=== PATIENT | female | born 1950 | race Caucasian/White ===

== ENCOUNTER 2016-09-30 15:53 | Emergency (ER) | payer MEDICARE, OTHER ==
[~2016-09-30] VITALS: Ht 167.6 cm; Wt 72.0 kg
[~2016-09-30 15:53] MED LIST: B2; LORA5SOL3 PO; LOVA20TA PO
[2016-09-30 16:04] VITALS: BP 121/65; PULSE 64; RESP 16; TEMP 97.5; O2SAT 96
--- NOTE | 2016-09-30 17:27 | RADHPO ---
EXAM DATE/TIME: 09/30/2016 16:42 [facility] COMPARISON: No previous studies available for comparison. INDICATIONS : Left wrist pain for 3 days after fall. MEDICAL HISTORY : None. SURGICAL HISTORY : None. ENCOUNTER: Initial ACUITY: 3 days PAIN SCORE: Non-responsive. LOCATION: Left entire wrist FINDINGS: Degenerative changes are seen in the carpus with a soft-tissue swelling. Alignment is anatomic. A f racture is not appreciated. CONCLUSION: Degenerative changes without fracture. Guillermo Chou MD FACR on September 30, 2016 at 17:17 Board Certified Radiologist. This report was verified electronically.
--- NOTE | 2016-09-30 17:27 | RADHPO ---
EXAM DATE/TIME: 09/30/2016 16:42 [facility] COMPARISON: No previous studies available for comparison. INDICATIONS : Left hand pain, swelling for 3 days after fall MEDICAL HISTORY : None. SURGICAL HISTORY : None. ENCOUNTER: Initial ACUITY: 3 days PAIN SCORE: Non-responsive. LOCATION: Left entire hand FINDINGS: Bones are diffusely osteoporotic. Fingers are held in flexion. There is generalized soft-tissue swe lling. There are degenerative changes of the carpus. There is no evidence for a fracture of the carpus, metacarpals or proximal phalanges. The distal pha langes are poorly evaluated. CONCLUSION: Generalized soft-tissue swelling without evidence for a fracture. Guillermo Chou MD FACR on September 30, 2016 at 17:16 Board Certified Radiologist. This report was verified electronically.
--- NOTE | 2016-09-30 17:28 | RADHPO ---
EXAM DATE/TIME: 09/30/2016 16:52 [facility] COMPARISON: No previous studies available for comparison. INDICATIONS : Left shoulder pain, swelling after fall 3 days ago MEDICAL HISTORY : None. SURGICAL HISTORY : None. ENCOUNTER: Initial ACUITY: 1 day PAIN SCORE: Non-responsive. LOCATION: Left entire shoulder FINDINGS: There is a fracture of the distal clavicle. Glenoid and humerus are intact. Lung apex is clear. CONCLUSION: Fracture distal clavicle. Guillermo Chou MD FACR on September 30, 2016 at 17:17 Board Certified Radiologist. This report was verified electronically.
[2016-09-30] MEDS ORDERED: SLEEPING PILL (18:51)
--- NOTE | 2016-09-30 18:59 | PD ---
HPI Chief Complaint: Fall Time Seen by Provider: 18:45 Travel History International Travel<30 days: No Contact w/Intl Traveler<30days: No Traveled to known affect area: No History of Present Illness HPI Patient is a 66 -year-old female presented to emergency department for evaluation of left shoulder pain. Patient had a mechanical fall on Wednesday where she fell out of the chair, hitting the back of her head on the floor. Since that time she is had pain with movement of the left shoulder per ' s report. Patient is in a memory unit for dementia. Patient is currently denying any pain. Per 's report patient is acting normally, he states that she does not normally follow commands well. PFSH Past Medical History Dementia: Yes Headaches: Yes Social History Alcohol Use: No Tobacco Use: No Substance Use: No Allergies-Medications (Allergen,Severity, Reaction): Coded Allergies: Sulfa (Verified Allergy, Severe, HIVES, 09/30/16) Reported Meds & Prescriptions Reported Meds & Active Scripts Active Reported [Sleeping Pill] Review of Systems Except as stated in HPI: all other systems reviewed are Neg Musculoskeletal: Positive: Limited ROM Skin: Positive Lumps Physical Exam Exam Limitations: Poor Historian Narrative GENERAL: Well-developed, well-nourished, alert elderly female. Resting comfortably in no acute distress. SKIN: Focused skin assessment warm/dry. HEAD: Atraumatic. Normocephalic. EYES: Pupils equal and round. No scleral icterus. No injection or drainage. ENT: No nasal bleeding or discharge. Mucous membranes pink and moist. NECK: Trachea midline. No JVD. CARDIOVASCULAR: Regular rate and rhythm. No murmur appreciated. RESPIRATORY: No accessory muscle use. Clear to auscultation. Breath sounds equal bilaterally. GASTROINTESTINAL: Abdomen soft, non-tender, nondistended. Hepatic and splenic margins not palpable. MUSCULOSKELETAL: No obvious deformities. No clubbing. No cyanosis. No edema. Tender to palpation over left clavicle. No ecchymosis noted over area. NEUROLOGICAL: Awake and alert. Left arm and hand contracture. Normal speech. PSYCHIATRIC: Appropriate mood and affect; insight and judgment impaired. Data Data Last Documented VS Vital Signs Date Time Temp Pulse Resp B/P Pulse Ox O2 Delivery O2 Flow Rate FiO2 09/30/16 16:04 97.5 64 16 121/65 96 Orders Hand, Complete ([id number]) (09/30/16 ) Shoulder, Complete (>2vws) (09/30/16 ) Wrist, Complete ([id number]) (09/30/16 ) Ct Brain W/O Iv Contrast(Rout) (09/30/16 ) [facility] Medical Decision Making Medical Screen Exam Complete: Yes Emergency Medical Condition: Yes Interpretation(s) Last Impressions Wrist X-Ray 09/30/16 0000 Signed Impressions: Service Date/Time: Friday, September 30, 2016 16:42 - CONCLUSION: Degenerative changes without fracture. Guillermo Chou MD FACR Shoulder X-Ray 09/30/16 0000 Signed Impressions: Service Date/Time: Friday, September 30, 2016 16:52 - CONCLUSION: Fracture distal clavicle. Guillermo Chou MD FACR Head CT 09/30/16 0000 Signed Impressions: Service Date/Time: Friday, September 30, 2016 18:53 - CONCLUSION: 1. Diffuse cerebral atrophy. 2. No acute infarct, acute hemorrhage, mass effect or extra-axial fluid collections. Larry Begum MD Hand X-Ray 09/30/16 0000 Signed Impressions: Service Date/Time: Friday, September 30, 2016 16:42 - CONCLUSION: Generalized soft-tissue swelling without evidence for a fracture. Guillermo Chou MD FACR Vital Signs Date Time Temp Pulse Resp B/P Pulse Ox O2 Delivery O2 Flow Rate FiO2 09/30/16 16:04 97.5 64 16 121/65 96 Differential Diagnosis Contusion versus concussion versus hemorrhage versus fracture versus sprain versus strain versus other Narrative Course Patient is a 66-year-old female presenting to emergency from for evaluation of left shoulder pain and left hand swelling. states that she normally does not use her left hand and it is always in a dependent position. He took patient to her primary doctor today for routine checkup and her primary noticed the left hand was swollen so he referred her to the emergency department. Patient does not answer questions appropriately, nor does she follow commands appropriately. Patient is neurovascularly intact. Imaging ordered and it revealed a fracture to the distal clavicle. There was no abnormality noted in the shoulder or left wrist or hand. Due to patient's history of dementia, CT scan of the brain is ordered and pending. CT of the brain shows diffuse atrophy, no infarct, hemorrhage or extra fluid collections noted. We placed her left arm in a sling, her was advised to follow-up with an orthopedic surgeon for further evaluation and management. He was encouraged to return to emergency department for any new or worsening symptoms. verbalized understanding of these instructions. Patient is stable for discharge. Diagnosis Primary Impression: Closed fracture of distal clavicle Qualified Code: S42.035A - Closed nondisplaced fracture of acromial end of left clavicle, initial encounter Referrals: Orthopaedic Surgeon 1 week Primary Care Physician 3 days Patient Instructions: Clavicle Fracture (ED), General Instructions Additional Instructions: Follow-up with primary doctor Follow-up with orthopedic surgeon Return to emergency department for any new or worsening symptoms May give [id number] acetaminophen as needed and as directed for pain Keep arm in sling for support and comfort Med/Other Pt SpecificInfo: No Change to Meds Disposition: 01 DISCHARGE HOME Condition: Stable Nani Clark Sep 30, 2016 18:59
--- NOTE | 2016-09-30 19:12 | RADHPO ---
EXAM DATE/TIME: 09/30/2016 18:53 [facility] COMPARISON: CT BRAIN W/O CONTRAST, July 28, 2013, 13:01. INDICATIONS : Trauma, fall. RADIATION DOSE: 59.62 CTDIvol (mGy) MEDICAL HISTORY : None SURGICAL HISTORY : None. ENCOUNTER: Initial ACUITY: 1 day PAIN SCALE: 4/10 LOCATION: Left cranial TECHNIQUE: Multiple contiguous axial images were obtained of the head. Using automated exposure control and adj ustment of the mA and/or kV according to patient size, radiation dose was kept as low as reasonably a chievable to obtain optimal diagnostic quality images. FINDINGS: CEREBRUM: Diffuse cerebral atrophy is noted. No evidence of midline shift, mass lesion, hemorrhage or acute inf arction. No extra-axial fluid collections are seen. POSTERIOR FOSSA: The cerebellum and brainstem are intact. The 4th ventricle is midline. The cerebellopontine angle i s unremarkable. EXTRACRANIAL: The visualized portion of the orbits is intact. SKULL: The calvaria is intact. No evidence of skull fracture. CONCLUSION: 1. Diffuse cerebral atrophy. 2. No acute infarct, acute hemorrhage, mass effect or extra-axial fluid collections. Larry Begum MD on September 30, 2016 at 19:09 Board Certified Radiologist. This report was verified electronically.
== END 2016-09-30 19:49 | disposition home or self-care (01) ==
LOC: PHEFT 15:53
DX: S42.035A Nondisplaced fracture of lateral end of left clavicle, initial encounter for closed fracture (principal); M79.89 Other specified soft tissue disorders; F03.90 Unspecified dementia, unspecified severity, without behavioral disturbance, psychotic disturbance, mood disturbance, and anxiety; W07.XXXA Fall from chair, initial encounter
CPT/HCPCS: 70450; 73030; 73110; 73130

== ENCOUNTER 2016-10-06 21:19 | Emergency (ER) | payer MEDICARE, OTHER ==
[~2016-10-06] VITALS: Ht 170.2 cm; Wt 70.0 kg
[~2016-10-06 21:19] MED LIST changes: -B2; -LORA5SOL3 PO; -LOVA20TA PO; +SLEEPING PILL
[2016-10-06 21:25] VITALS: BP 138/87; PULSE 98; RESP 18; TEMP 97.6; O2SAT 99
--- NOTE | 2016-10-06 21:28 | PD ---
HPI Chief Complaint: Fall Time Seen by Provider: 21:27 Travel History International Travel<30 days: No Contact w/Intl Traveler<30days: No Traveled to known affect area: No History of Present Illness HPI 66-year-old female brought in by EMS from local [facility] where she [facility] in [facility] memory unit secondary to dementia. Patient is brought in secondary to fall hitting her right parietal region on the head. Patient had no loss of consciousness. Patient complaining of mild headache. Patient was seen here recently on 09/30/2016 for fall with fracture of the left clavicle and contusion to the left hand. Patient has no complaints of dental injury, or neck pain. She has no complaints of pain intermittently of the other extremities at this time. Patient is not on any anticoagulants. She is allergic to sulfa. [facility] Past Medical History Dementia: Yes Headaches: Yes ?: Not Social History Alcohol Use: No Tobacco Use: No Substance Use: No Allergies-Medications (Allergen,Severity, Reaction): Coded Allergies: Sulfa (Verified Allergy, Severe, HIVES, 09/30/16) Reported Meds & Prescriptions Reported Meds & Active Scripts Active Reported Trazodone (Trazodone HCl) 50 Mg Tab 50 Mg PO HS [Sleeping Pill] Review of Systems ROS Limitations: Poor Historian Except as stated in HPI: all other systems reviewed are Neg General / Constitutional: No: Fever Eyes: No: Visual changes HENT: No: Headaches Cardiovascular: No: Chest Pain or Discomfort Respiratory: No: Shortness of Breath Gastrointestinal: No: Abdominal Pain Genitourinary: No: Dysuria Musculoskeletal: No: Pain Skin: No Rash Neurologic: No: Weakness Psychiatric: No: Depression Endocrine: No: Polydipsia Hematologic/Lymphatic: No: Easy Bruising Physical Exam Narrative GENERAL: Patient appears in no acute distress. SKIN: Warm and dry. Normal color. Normal turgor. Patient has some old bruising to the left dorsal hand, and swelling over the right upper anterior parietal region scalp without open wound or abrasion. HEAD: Atraumatic. Normocephalic. CT scan. EYES: Pupils equal and round. No scleral icterus. No injection or drainage. Ocular motions are equal bilaterally. ENT: No nasal bleeding or discharge. Mucous membranes pink and moist. No obvious dental injury. TMs are clear bilaterally. Pharynx is clear. Airway is patent. NECK: Trachea midline. No bony tenderness or step-off. Supple and nontender. CARDIOVASCULAR: Regular rate and rhythm. RESPIRATORY: No accessory muscle use. Clear to auscultation. Breath sounds equal bilaterally. MUSCULOSKELETAL: Extremities without clubbing, cyanosis, or edema. No obvious deformities. Patient wearing a sling to the left arm consistent with her clavicle fracture history. No new injuries noted compared to previous exam on . NEUROLOGICAL: Awake and alert. No obvious cranial nerve deficits. Motor grossly within normal limits. Five out of 5 muscle strength in the arms and legs. Normal speech. PSYCHIATRIC: Appropriate mood and affect; insight and judgment normal. Data Data Last Documented VS Vital Signs Date Time Temp Pulse Resp B/P Pulse Ox O2 Delivery O2 Flow Rate FiO2 10/06/16 21:25 97.6 98 18 138/[address] Brain W/O Iv Contrast(Rout) (10/06/16 21:28) [facility] Medical Decision Making Medical Screen Exam Complete: Yes Emergency Medical Condition: Yes Medical Record Reviewed: Yes Differential Diagnosis Fall. Scalp contusion. Intracranial bleed. Possible skull fracture. Narrative Course Patient is medically stable at time of exam. CT of the head is ordered. CT shows a hematoma to the right parietal region, but no significant new changes in the brain per radiologist. Patient is felt stable to return to her nursing facility. Patient to continue her sling for her clavicle fracture. No changes in medication warranted. Diagnosis Primary Impression: Fall Qualified Code: W19.XXXA - Fall, initial encounter Additional Impression: Contusion of scalp, initial encounter Referrals: Primary Care Physician Patient Instructions: Fall Prevention for Older Adults (ED), General Instructions, Scalp Contusion in Adults (ED) Additional Instructions: CT shows a hematoma to the right parietal region, but no significant new changes in the brain per radiologist. Patient is felt stable to return to her nursing facility. Patient to continue her sling for her clavicle fracture. No changes in medication warranted. Disposition: 03 DISCHARGE TO SNF Condition: Stable Lowell Correia Oct 06, 2016 21:27
[2016-10-06] MEDS ORDERED: TRAZ50TA12 PO (21:30)
--- NOTE | 2016-10-06 22:37 | RADRPT ---
EXAM DATE/TIME: 10/06/2016 22:09 [facility] COMPARISON: CT BRAIN W/O CONTRAST, July 28, 2013, 13:01. CT BRAIN W/O CONTRAST, September 30, 2016, 18:53. INDICATIONS : Fall. Right sided head trauma. RADIATION DOSE: 31.05 CTDIvol (mGy) MEDICAL HISTORY : Dementia. SURGICAL HISTORY : None. ENCOUNTER: Initial ACUITY: 1 day PAIN SCALE: 7/10 LOCATION: Right parietal TECHNIQUE: Multiple contiguous axial images were obtained of the head. Using automated exposure control and adj ustment of the mA and/or kV according to patient size, radiation dose was kept as low as reasonably a chievable to obtain optimal diagnostic quality images. FINDINGS: CEREBRUM: The ventricles ventricles, sulci, and basal cisterns are prominent, characteristic of severe central and cortical atrophy. The severity of the atrophy is similar to recent CT, but has progressed since a prior CT in 2013.. No evidence of midline shift, mass lesion, hemorrhage or acute infarction. No extra-axial fluid collections are seen. POSTERIOR FOSSA: The cerebellum and brainstem are intact. The 4th ventricle is midline. The cerebellopontine angle i s unremarkable. EXTRACRANIAL: The visualized portion of the orbits is intact. SKULL: There is a mid convexity right parietal scalp hematoma which measures 1 cm in thickness. The calvari a is intact. No evidence of skull fracture. CONCLUSION: 1. 1 cm right parietal scalp hematoma without evidence of skull fracture. 2. Severe central and cortical atrophy, stable from prior exam 09/30/16. Ketan Bonner MD on October 06, 2016 at 22:33 Board Certified Radiologist. This report was verified electronically.
== END 2016-10-06 23:08 ==
LOC: NEPA 21:19
DX: S00.03XA Contusion of scalp, initial encounter (principal); W19.XXXA Unspecified fall, initial encounter; Y92.129 Unspecified place in nursing home as the place of occurrence of the external cause
CPT/HCPCS: 70450

== ENCOUNTER 2016-10-16 20:18 | Emergency (ER) | payer MEDICARE, OTHER ==
[~2016-10-16 20:18] MED LIST changes: +TRAZ50TA12 PO
[2016-10-16 20:30] VITALS: BP 104/55; PULSE 69; RESP 17; O2SAT 95
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
--- NOTE | 2016-10-16 21:57 | RADRPT ---
EXAM DATE/TIME: 10/16/2016 21:13 [facility] COMPARISON: CHEST PA & LAT, July 28, 2013, 12:57. INDICATIONS : Fall. Right sided rib pain. MEDICAL HISTORY : None. SURGICAL HISTORY : None. ENCOUNTER: Initial ACUITY: 1 day PAIN SCORE: 5/10 LOCATION: Bilateral chest FINDINGS: There is slight parenchymal opacity at the left lung base which maybe mild contusion or atelectasis. Right lung is clear. There is no significant hemothorax or pneumothorax suspected. Cardiomediastinal contours are satisfactory. CONCLUSION: Mild parenchymal opacity at the left lung base Xavier Medrano MD on October 16, 2016 at 21:55 Board Certified Radiologist. This report was verified electronically.
--- NOTE | 2016-10-16 21:57 | RADRPT ---
EXAM DATE/TIME: 10/16/2016 21:15 [facility] COMPARISON: No previous studies available for comparison. INDICATIONS : Fall. Right upper arm pain. MEDICAL HISTORY : None. SURGICAL HISTORY : None. ENCOUNTER: Initial ACUITY: 1 day PAIN SCORE: 6/10 LOCATION: Right upper extremity FINDINGS: Two view examination of the right humerus demonstrates no evidence of fracture or dislocation. Bony mineralization is normal. The soft tissue structures are intact. CONCLUSION: Unremarkable examination of the right humerus. Xavier Medrano MD on October 16, 2016 at 21:56 Board Certified Radiologist. This report was verified electronically.
--- NOTE | 2016-10-16 21:58 | RADRPT ---
EXAM DATE/TIME: 10/16/2016 21:21 [facility] COMPARISON: CHEST SINGLE AP, October 16, 2016, 21:13. INDICATIONS : Fall. Right arm pain. MEDICAL HISTORY : None. SURGICAL HISTORY : None. ENCOUNTER: Initial ACUITY: 1 day PAIN SCORE: 5/10 LOCATION: Right upper extremity FINDINGS: Two view examination of the right forearm demonstrates no evidence of fracture or dislocation. Bony mineralization is normal. The soft tissue structures are intact. CONCLUSION: Unremarkable examination of the right forearm. Xavier Medrano MD on October 16, 2016 at 21:56 Board Certified Radiologist. This report was verified electronically.
[2016-10-16 21:59] VITALS: BP 152/62; PULSE 67; RESP 18; TEMP 99.8; O2SAT 97
== END 2016-10-16 22:46 ==
LOC: NEPE 20:18
DX: S50.01XA Contusion of right elbow, initial encounter (principal); S50.311A Abrasion of right elbow, initial encounter; F03.90 Unspecified dementia, unspecified severity, without behavioral disturbance, psychotic disturbance, mood disturbance, and anxiety; W18.39XA Other fall on same level, initial encounter; Y93.89 Activity, other specified; Y92.128 Other place in nursing home as the place of occurrence of the external cause; Y99.8 Other external cause status
CPT/HCPCS: 71010; 73060; 73090; 99284

== ENCOUNTER 2016-10-21 19:02 | Emergency (ER) | payer MEDICARE, OTHER ==
[~2016-10-21] VITALS: Ht 165.1 cm; Wt 71.6 kg
[2016-10-21 19:14] VITALS: BP 119/68; PULSE 85; RESP 16; TEMP 98.9; O2SAT 96
--- NOTE | 2016-10-21 19:36 | PD ---
HPI Chief Complaint: fell, hit head Time Seen by Provider: 19:30 Travel History International Travel<30 days: No Contact w/Intl Traveler<30days: No Traveled to known affect area: No History of Present Illness HPI The patient is a 66-year-old female with a history of early onset Alzheimer's dementia who fell in the [place] [facility], today and up apparently hit her forehead. There is been no mental status change, no focal neurologic change and no nausea or vomiting. She denies any headache. She has fallen about 7 times the last 2 months and the patient is going into rehabilitation in order to help her ambulate better. She has a previous contusion of the left hand which will be evaluated by the orthopedic physician and has been x-rayed and evaluated by an orthopedic physician. She has an old contusion below the right eye. She denies any neck pain or head pain. She is not on any anticoagulants. PFSH Past Medical History Dementia: Yes Diminished Hearing: No Headaches: Yes Past Surgical History Oral Surgery: Yes (IMPACTED WISDOM TOOTH) Social History Alcohol Use: No Tobacco Use: No Substance Use: No Allergies-Medications (Allergen,Severity, Reaction): Coded Allergies: Sulfa (Verified Allergy, Severe, HIVES, 10/21/16) Reported Meds & Prescriptions Reported Meds & Active Scripts Active Reported Trazodone (Trazodone HCl) 50 Mg Tab 50 Mg PO HS [Sleeping Pill] Review of Systems Except as stated in HPI: all other systems reviewed are Neg Physical Exam Narrative GENERAL: Well-nourished, well-developed patient in no apparent distress except for her left clavicular pain, she sustained a clavicular fracture on that side previously. She is in a sling. Her vital signs are normal. SKIN: Focused skin assessment warm/dry. There is a contusion on the left hand as well as a small contusion below the right eye but I do not see any contusion on the forehead where the patient presumably in her head today. HEAD: Normocephalic. Neither raccoon eyes nor thomas sign is present. EYES: No scleral icterus. No injection or drainage. NECK: Supple, trachea midline. No JVD or lymphadenopathy. There is no C-spine, T-spine or LS-spine tenderness or deformity. CARDIOVASCULAR: Regular rate and rhythm without murmurs, gallops, or rubs. RESPIRATORY: Breath sounds equal bilaterally. No accessory muscle use. Lungs clear to auscultation bilaterally, the patient has suboptimal respiratory effort during the exam. GASTROINTESTINAL: Abdomen soft, non-tender, nondistended. MUSCULOSKELETAL: No cyanosis, or edema. BACK: Nontender without obvious deformity. No CVA tenderness. ENT: No hemotympanum is present. Data Data Last Documented VS Vital Signs Date Time Temp Pulse Resp B/P Pulse Ox O2 Delivery O2 Flow Rate FiO2 10/21/16 19:25 83 16 10/21/16 19:14 98.9 119/68 96 MDM Medical Decision Making Medical Screen Exam Complete: Yes Emergency Medical Condition: Yes Medical Record Reviewed: Yes Differential Diagnosis Head traumaminimal, fractured skullhighly unlikely, intracranial bleedhighly unlikely Narrative Course The patient has frequent falls. The head trauma today appears minimal and there is no evidence of any mental status change, skull fracture, C-spine fracture or any other significant trauma. Impressions: Frequent falling, minor head trauma Diagnosis Primary Impression: Fall Additional Impression: Minor head trauma Additional Instructions: Follow-up with Dr. Edwards because of the frequent falls. I know the rehabilitation is aimed at preventing some of these falls. Disposition: 01 DISCHARGE HOME Condition: Stable Daren Sparrow MD Oct 21, 2016 19:36
[2016-10-21 19:50] VITALS: BP 115/61
== END 2016-10-21 19:52 | disposition home or self-care (01) ==
LOC: PHED 19:02
DX: S00.80XA Unspecified superficial injury of other part of head, initial encounter (principal); G30.0 Alzheimer's disease with early onset; F02.80 Dementia in other diseases classified elsewhere, unspecified severity, without behavioral disturbance, psychotic disturbance, mood disturbance, and anxiety; Z91.81 History of falling; W19.XXXA Unspecified fall, initial encounter; Y92.129 Unspecified place in nursing home as the place of occurrence of the external cause
CPT/HCPCS: 99283

== ENCOUNTER 2016-10-22 19:29 | Emergency (ER) | payer MEDICARE, OTHER ==
[~2016-10-22] VITALS: Ht 165.1 cm; Wt 70.5 kg
[~2016-10-22 19:29] MED LIST changes: -TRAZ50TA12 PO
[2016-10-22 19:41] VITALS: BP 124/60; PULSE 76; RESP 18; TEMP 98.2; O2SAT 97
[2016-10-22 21:50] VITALS: BP 132/77; PULSE 72; RESP 16; O2SAT 99
--- NOTE | 2016-10-22 22:44 | PD ---
HPI Chief Complaint: Fall Time Seen by Provider: 22:36 Travel History International Travel<30 days: No Contact w/Intl Traveler<30days: No Traveled to known affect area: No History of Present Illness HPI 66-year-old female presents to the emergency department by nonemergent transport for evaluation of fall with head injury. According to the who relays a history is patient has dementia and is a poor historian she was at her assisted-living facility [facility] and had a witnessed fall by assisted- living facility staff. Patient had recently received her evening medication to help her sleep and fell backwards hitting her head. There was no loss of consciousness. Patient has been having frequent falls according to the . Patient was recently seen here for clavicle fracture affecting the left clavicle and left upper extremity injury and hand injury and subsequently has had swelling of the left hand. Patient is scheduled to see orthopedic surgeon but has not done so. states that he has moved her from [facility] to [facility] and it appears that her falling is becoming more and more of an issue and request recommendation for what type of helmet to have the patient wear at all times. 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; dental extraction; no alcohol use: Nursing notes reviewed Dementia: Yes Diminished Hearing: No Headaches: Yes Musculoskeletal: Yes (LEFT SIDED WEAKNESS AND CONTRACTURE OF LEFT HAND) Tetanus Vaccination: < 5 Years ?: Not : 0 Past Surgical History Oral Surgery: Yes (IMPACTED WISDOM TOOTH) Social History Alcohol Use: No Tobacco Use: No (QUIT 2005) Substance Use: No Allergies-Medications (Allergen,Severity, Reaction): Coded Allergies: Sulfa (Verified Allergy, Severe, HIVES, 10/22/16) Reported Meds & Prescriptions Reported Meds & Active Scripts Active Reported [Sleeping Pill] Review of Systems ROS Limitations: Clinical Condition, Poor Historian, Other: ( provides history) Except as stated in HPI: all other systems reviewed are Neg General / Constitutional: No: Fever HENT: Positive: Neck Pain Cardiovascular: No: Chest Pain or Discomfort Gastrointestinal: No: Abdominal Pain Musculoskeletal: Positive: Edema (left hand) Neurologic: Positive: Weakness, No: Change in Mentation Hematologic/Lymphatic: No: Easy Bruising Physical Exam Narrative GENERAL: Well-developed well-nourished female in no acute respiratory distress; GCS 14 SKIN: Warm and dry. HEAD: Atraumatic. Normocephalic except for posterior scalp soft tissue swelling. EYES: Pupils equal and round. No scleral icterus. No injection or drainage. ENT: No nasal bleeding or discharge. Mucous membranes pink and moist. NECK: Trachea midline. No JVD. No midline tenderness to direct palpation no bony step-off. CARDIOVASCULAR: Regular rate and rhythm. RESPIRATORY: No accessory muscle use. Clear to auscultation. Breath sounds equal bilaterally. GASTROINTESTINAL: Abdomen soft, non-tender, nondistended. Hepatic and splenic margins not palpable. MUSCULOSKELETAL: Extremities without clubbing, cyanosis, or edema. No obvious deformities. NEUROLOGICAL: Awake and alert. No obvious cranial nerve deficits. Motor grossly within normal limits. Five out of 5 muscle strength in the arms and legs. Normal speech. Data Data Last Documented VS Vital Signs Date Time Temp Pulse Resp B/P Pulse Ox O2 Delivery O2 Flow Rate FiO2 10/23/16 00:30 84 18 112/60 99 10/22/16 21:50 Room Air 10/22/16 19:[address] Brain W/O Iv Contrast(Rout) (10/22/16 ) Ct Cerv Spine W/O Contrast (10/22/16 ) Clavicle (10/22/16 ) Hand, Limited (2vws) (10/22/16 ) Ice/Cold Pack (10/22/16 22:36) Sling And Swathe (10/23/16 ) MDM Medical Decision Making Medical Screen Exam Complete: Yes Emergency Medical Condition: Yes Medical Record Reviewed: Yes Interpretation(s) CT cerv spine w/o contrast: CONCLUSION: 1. No fracture or dislocation. 2. Multilevel degenerative changes. Each level is detailed in the above discussion. 3. Multinodular thyroid goiter. Ketan Clemens Jr., MD on October 22, 2016 at 23:41 Board Certified Radiologist. This report was verified electronically. Last Impressions Head CT 10/22/16 0000 Signed Impressions: Service Date/Time: October 22:55 - CONCLUSION: 1. Soft tissue hematoma. 2. No acute intracranial abnormality. Ketan Clemens Jr., MD Left clavicle xr: LOCATION: Left clavicle FINDINGS: 2 views of the left clavicle revealed acute nondisplaced fracture bone the distal aspect of the clavicle. No inhalation or overlap. The coracoclavicular and acromioclavicular distances are normal. Scapula and proximal humerus are intact. CONCLUSION: Acute distal left clavicular fracture as detailed above. Ketan Clemens Jr., MD on October 22, 2016 at 23:47 Board Certified Radiologist. This report was verified electronically. Left hand xr: LOCATION: Left entire hand FINDINGS: 2 views the left hand are significantly limited as the patient has flexion of all digits resulting in significant overlap. Osteopenia is noted. No gross fracture or dislocation. Soft tissues are unremarkable. CONCLUSION: Significant limitations without gross abnormality. Ketan Clemens Jr., MD on October 22, 2016 at 23:47 Board Certified Radiologist. This report was verified electronically. Differential Diagnosis Fracture, ICH, CHI, sprain, strain, contusion Narrative Course Ice packs applied; imaging studies ordered; at bedside remains at bedside At 12 midnight imaging studies resulted has been informed that CT brain noncontrast reveals no acute intracranial process or skull fracture CT cervical spine reveals chronic changes x-ray of left clavicle continues to identify appearance of acute distal clavicle fracture without significant displacement and left hand shows chronic changes without obvious fracture or dislocation. Diagnosis Primary Impression: Minor head trauma Additional Impressions: Cervical strain, acute Qualified Code: S16.1XXA - Cervical strain, acute, initial encounter Closed fracture of distal clavicle Qualified Code: S42.035G - Closed nondisplaced fracture of acromial end of left clavicle with delayed healing, subsequent encounter Contracture, left hand Referrals: Primary Care Physician call for appointment Patient Instructions: General Instructions Additional Instructions: Follow head injury precautions 24 hours Monitor for increased risk for fall Follow-up with orthopedist as planned regarding clavicle fracture and for left hand injury Return to the emergency department for any concerns or change in condition May apply ice intermittently to areas of soft tissue swelling and discomfort Continue to wear sling to the left upper extremity May administer acetaminophen/Tylenol for minor pain or ibuprofen 400-600 mg as often as every 6-8 hours for pain associated with inflammation as tolerated Follow-up with primary care provider for adjustment of any medications. Disposition: 01 DISCHARGE HOME Condition: Stable Irene Plaza MD Oct 22, 2016 22:44
--- NOTE | 2016-10-22 23:27 | RADHPO ---
EXAM DATE/TIME: 10/22/2016 22:55 [facility] COMPARISON: CT BRAIN W/O CONTRAST, October 06, 2016, 22:09. INDICATIONS : Fall. Posterior head and neck trauma. RADIATION DOSE: 57.31 CTDIvol (mGy) MEDICAL HISTORY : None SURGICAL HISTORY : None. ENCOUNTER: Initial ACUITY: 1 day PAIN SCALE: 7/10 LOCATION: cranial TECHNIQUE: Multiple contiguous axial images were obtained of the head. Using automated exposure control and adj ustment of the mA and/or kV according to patient size, radiation dose was kept as low as reasonably a chievable to obtain optimal diagnostic quality images. FINDINGS: CEREBRUM: Supratentorial and infratentorial atrophy. The ventricles are normal for age. No evidence of midline shift, mass lesion, hemorrhage or acute infarction. No extra-axial fluid collections are seen. POSTERIOR FOSSA: The cerebellum and brainstem are intact. The 4th ventricle is midline. The cerebellopontine angle i s unremarkable. EXTRACRANIAL: The visualized portion of the orbits is intact. There is a soft tissue hematoma involving the vertex just to left of midline. SKULL: The calvaria is intact. No evidence of skull fracture. CONCLUSION: 1. Soft tissue hematoma. 2. No acute intracranial abnormality. Ketan Clemens Jr., MD on October 22, 2016 at 23:24 Board Certified Radiologist. This report was verified electronically.
[2016-10-22 23:30] VITALS: BP 128/72; PULSE 88; RESP 16; O2SAT 99
--- NOTE | 2016-10-22 23:48 | RADHPO ---
EXAM DATE/TIME: 10/22/2016 22:55 [facility] COMPARISON: No previous studies available for comparison. INDICATIONS : Fall. Posterior head and neck trauma. RADIATION DOSE: 23.77 CTDIvol (mGy) MEDICAL HISTORY : None SURGICAL HISTORY : None. ENCOUNTER: Initial ACUITY: 1 day PAIN SCALE: 7/10 LOCATION: neck TECHNIQUE: Volumetric scanning of the cervical spine was performed. Multiplanar reconstructions in the sagittal, coronal and oblique axial planes were performed. Using automated exposure control and adjustment o f the mA and/or kV according to patient size, radiation dose was kept as low as reasonably achievable to obtain optimal diagnostic quality images. FINDINGS: VERTEBRAE: Normal vertebral body height. ALIGNMENT: No evidence of subluxation. C2-C3: The bony spinal canal is normal in size. No evidence of disc bulge or herniation. The neural forami na are bilaterally patent. C3-C4: There is a mild central bulge without abutment of the cord or central canal stenosis. Prominent bony hypertrophy on the right with narrowing of the right neural foramen. The left is patent. C4-C5: There is a minimal central bulge without abutment of the cord or central canal stenosis. Bony uncover tebral hypertrophy is more pronounced on the right. Neural foramina remain patent. C5-C6: A broad-based disc osteophyte complex flattens the ventral portion of the cord causing mild central c anal stenosis. There is narrowing of the lateral recesses bilaterally. Bony uncovertebral hypertrophy causes mild narrowing of both neural foramen. C6-C7: A mild broad-based disc osteophyte complex slightly eccentric to the left narrows the left lateral re cess. The right lateral recess and central canal are patent. Neural foramina are patent. C7-T1: The bony spinal canal is normal in size. No evidence of disc bulge or herniation. The neural forami na are bilaterally patent. Multiple small thyroid nodules are noted bilaterally. CONCLUSION: 1. No fracture or dislocation. 2. Multilevel degenerative changes. Each level is detailed in the above discussion. 3. Multinodular thyroid goiter. Ketan Clemens Jr., MD on October 22, 2016 at 23:41 Board Certified Radiologist. This report was verified electronically.
--- NOTE | 2016-10-22 23:49 | RADHPO ---
EXAM DATE/TIME: 10/22/2016 23:09 [facility] COMPARISON: No previous studies available for comparison. INDICATIONS : Left clavicle pain post fall today MEDICAL HISTORY : Left distal clavicle fracture SURGICAL HISTORY : None. ENCOUNTER: Initial ACUITY: 1 day PAIN SCORE: Non-responsive. LOCATION: Left clavicle FINDINGS: 2 views of the left clavicle revealed acute nondisplaced fracture bone the distal aspect of the clavi akila. No inhalation or overlap. The coracoclavicular and acromioclavicular distances are normal. Scapu la and proximal humerus are intact. CONCLUSION: Acute distal left clavicular fracture as detailed above. Ketan Clemens Jr., MD on October 22, 2016 at 23:47 Board Certified Radiologist. This report was verified electronically.
--- NOTE | 2016-10-22 23:50 | RADHPO ---
EXAM DATE/TIME: 10/22/2016 23:14 [facility] COMPARISON: No previous studies available for comparison. INDICATIONS : Left hand bruising, swelling after fall today. MEDICAL HISTORY : None. SURGICAL HISTORY : None. ENCOUNTER: Initial ACUITY: 1 day PAIN SCORE: Non-responsive. LOCATION: Left entire hand FINDINGS: 2 views the left hand are significantly limited as the patient has flexion of all digits resulting in significant overlap. Osteopenia is noted. No gross fracture or dislocation. Soft tissues are unremar kable. CONCLUSION: Significant limitations without gross abnormality. Ketan Clemens Jr., MD on October 22, 2016 at 23:47 Board Certified Radiologist. This report was verified electronically.
[2016-10-23 00:30] VITALS: BP 112/60
== END 2016-10-23 00:31 | disposition home or self-care (01) ==
LOC: PHED 19:29
DX: S09.90XA Unspecified injury of head, initial encounter (principal); S16.1XXA Strain of muscle, fascia and tendon at neck level, initial encounter; S42.035 Nondisplaced fracture of lateral end of left clavicle; M24.542 Contracture, left hand; F03.90 Unspecified dementia, unspecified severity, without behavioral disturbance, psychotic disturbance, mood disturbance, and anxiety; E04.2 Nontoxic multinodular goiter; Z87.891 Personal history of nicotine dependence; W19.XXXA Unspecified fall, initial encounter; Y93.9 Activity, unspecified; Y92.129 Unspecified place in nursing home as the place of occurrence of the external cause; Y99.8 Other external cause status
CPT/HCPCS: 29240; 70450; 72125; 73000; 73120